=== PATIENT | female | born 1990 ===

== ENCOUNTER 2023-03-29 08:10 | Outpatient (CLI) | payer OTHER, SELFPAY | END 2023-03-29 08:11 | disposition home or self-care (01) | LOC: NFLDREF 03-30 06:49 | PROVIDERS: PCP Family Medicine; Referring Provider Family Medicine; Visit Provider Family Medicine | DX: I10 Essential (primary) hypertension (principal); Z13.6 Encounter for screening for cardiovascular disorders | CPT/HCPCS: 80048; 80061 ==

== ENCOUNTER 2023-06-26 08:05 | Outpatient (CLI) | payer OTHER, SELFPAY | END 2023-06-26 08:06 | disposition home or self-care (01) | PROVIDERS: PCP Family Medicine; Visit Provider Family Medicine | DX: I10 Essential (primary) hypertension (principal); E87.6 Hypokalemia | CPT/HCPCS: 82306; 83735 ==